=== PATIENT | female | born 1940 | race Caucasian/White ===

== ENCOUNTER → 2016-12-10 | Outpatient (CLI) | payer MEDICARE ==
--- NOTE | 2016-12-10 11:43 | RADIOLOGY REPORT (SQ) ---
EXAM DESCRIPTION: SHOULDER RIGHT 2 OR MORE VIEWS COMPLETED DATE/TIME: 12/10/2016 11:28 am REASON FOR STUDY: S49.91XA RT SHLD INITIAL ENCOUNTER, S/P FALL S89.91XA UNSPECIFIED INJURY OF RIGHT LOWER LEG, INITIAL ENCO S49.91XA UNSP INJURY OF RIGHT SHOULDER AND UPPER ARM, INIT E COMPARISON: None. NUMBER OF VIEWS: Three views. TECHNIQUE: Internal rotation, external rotation, and Y view images acquired of the right shoulder. LIMITATIONS: None. FINDINGS: MINERALIZATION: Osteopenia. BONES: Deformity of the distal clavicle. Appears to be related to an old fracture. JOINTS: No dislocation. VISUALIZED LUNGS AND RIBS: No pneumothorax. No rib fracture. SOFT TISSUES: No radiopaque foreign body. OTHER: No other significant finding. IMPRESSION: Deformity of the distal clavicle which appears to be related to 1 old fracture. No obvi ous acute fracture. TECHNICAL DOCUMENTATION: JOB ID: [id number] [employer]- All Rights Reserved
--- NOTE | 2016-12-10 11:43 | RADIOLOGY REPORT (SQ) ---
EXAM DESCRIPTION: FEMUR RIGHT COMPLETED DATE/TIME: 12/10/2016 11:28 am REASON FOR STUDY: S89.91XA, RT LEG INJURY INITIAL ENCOUNTER, S/P FALL W PAIN S89.91XA UNSPECIFIED I NJURY OF RIGHT LOWER LEG, INITIAL ENCO S49.91XA UNSP INJURY OF RIGHT SHOULDER AND UPPER ARM, INIT E COMPARISON: None. NUMBER OF VIEWS: Two views. TECHNIQUE: Two radiographic images acquired of the right femur to include hip and knee in at least o ne projection. LIMITATIONS: None. FINDINGS: MINERALIZATION: Normal. BONES: No acute fracture. No worrisome bone lesions. SOFT TISSUES: No obvious swelling or foreign body. OTHER: No other significant finding. IMPRESSION: NEGATIVE STUDY OF THE RIGHT FEMUR. NO RADIOGRAPHIC EVIDENCE OF ACUTE INJURY. TECHNICAL DOCUMENTATION: JOB ID: [id number] [employer]- All Rights Reserved
--- NOTE | 2016-12-10 11:43 | RADIOLOGY REPORT (SQ) ---
EXAM DESCRIPTION: TIBIA FIBULA RIGHT COMPLETED DATE/TIME: 12/10/2016 11:28 am REASON FOR STUDY: S89.91XA, RT LEG INJURY INITIAL ENCOUNTER, S/P FALL W PAIN S89.91XA UNSPECIFIED I NJURY OF RIGHT LOWER LEG, INITIAL ENCO S49.91XA UNSP INJURY OF RIGHT SHOULDER AND UPPER ARM, INIT E COMPARISON: None. NUMBER OF VIEWS: Two views. TECHNIQUE: Two radiographic images acquired of the right tibia and fibula to include the knee and an kle in at least one projection. LIMITATIONS: None. FINDINGS: MINERALIZATION: Normal. BONES: No acute fracture or dislocation. No worrisome bone lesions. SOFT TISSUES: No obvious swelling or foreign body. OTHER: No other significant finding. IMPRESSION: NEGATIVE STUDY OF THE RIGHT TIBIA AND FIBULA. NO RADIOGRAPHIC EVIDENCE OF ACUTE INJURY. TECHNICAL DOCUMENTATION: JOB ID: [id number] [employer]- All Rights Reserved
== END ==
LOC: RAD 10:44
PROVIDERS: ATTEND Family Medicine
DX: S49.91XA Unspecified injury of right shoulder and upper arm, initial encounter (principal); S89.91XA Unspecified injury of right lower leg, initial encounter; X58.XXXA Exposure to other specified factors, initial encounter; Y93.9 Activity, unspecified; Y92.9 Unspecified place or not applicable

== ENCOUNTER → 2018-05-21 | Outpatient (CLI) | payer MEDICARE ==
--- NOTE | 2018-05-21 11:56 | WOMENS IMAGING REPORT ---
EXAM DESCRIPTION: BILAT SCREENING MAMMO W/CAD COMPLETED DATE/TIME: 05/21/2018 11:05 am REASON FOR STUDY: SCREENING MAMMO Z12.31 ENCNTR SCREEN MAMMOGRAM FOR MALIGNANT NEOPLASM OF PINO COMPARISON: Multiple since 2009 TECHNIQUE: Standard craniocaudal and mediolateral oblique views of each breast recorded using visetoa l acquisition. LIMITATIONS: None. FINDINGS: Findings present which are benign by mammographic criteria. No suspicious masses, calcifi cations or architectural distortion. Pertinent benign findings: Stable bilateral breast parenchymal and skin calcifications. Old stereota ctic biopsy clip left upper outer quadrant. Patient reports a benign biopsy in 2008 Read with the assistance of CAD. .[facility] - R2 [employer] Version 1.3 .[facility] - R2 [employer] Version 1.3 .[facility] - R2 C[employer] Version 2.4 .[facility] [place] - R2 Cenova Version 2.4 .[facility] - R2 [employer] Version 9.2 Benign mammographic findings may include one or more of the following: Smooth masses, popcorn/rim/co arse calcifications, asymmetries, post-procedure changes, and lesions with long-standing stability. IMPRESSION: BENIGN MAMMOGRAPHIC FINDINGS. BIRADS 2 BREAST DENSITY: b. There are scattered areas of fibroglandular density. BIRAD: 2 BENIGN FINDING(S) RECOMMENDATION: ROUTINE SCREENING Please continue yearly bilateral screening mammography/tomosynthesis in April 2019 COMMENT: The patient has been notified of the results by letter per SA requirements. Additional no tification policies are in place for contacting patient with suspicious or incomplete findings. Quality ID #[id number]: The [employer] recommends an annual screening mammogram for women aged 40 years or over. This facility utilizes a reminder system to ensure that all patients receive reminder letters, and/or direct phone calls for appointments. This includes reminders for routine scr eening mammograms, diagnostic mammograms, or other Breast Imaging Interventions when appropriate. Th is patient will be placed in the appropriate reminder system. The [employer] ([employer]) has developed recommendations for screening MRI of the breast s in certain patient populations, to be used in conjunction with mammography. Breast MRI surveillanc e may be appropriate for women with more than 20% lifetime risk of developing breast cancer as deter mined by genetic testing, significant family history of the disease, or history of mantle radiation f or Hodgkins Disease. ACR Practice Guidelines 2008. TECHNICAL DOCUMENTATION: FINDING NUMBER: (1) ASSESSMENT: (1) JOB ID: [id number] [employer]- All Rights Reserved Reading location - IP/workstation name: [email or web address]
== END ==
LOC: WI 10:50
PROVIDERS: ATTEND Family Medicine
DX: Z12.31 Encounter for screening mammogram for malignant neoplasm of breast (principal)
CPT/HCPCS: 77067